=== PATIENT | female | born 1965 | race Caucasian/White ===

== ENCOUNTER 2025-07-21 11:34 | Emergency (ER) | payer OTHER, SELFPAY ==
[2025-07-21 11:40] VITALS: BP 149/104
--- NOTE | 2025-07-21 12:34 | ED.GENMED ---
History of Present Illness
General
Chief Complaint: Musculo-Skeletal Complaint
Source: patient
Exam Limitations: none
Time Seen by Provider: 07/21/25 12:31
History of Present Illness
History of Present Illness:
60yoF with history of migraines presenting with her for evaluation of left arm pain. Symptoms began around 11 AM this morning when she was sitting at her desk at work. She reports a pain in her left upper arm which radiated down to her
fingers. Pain felt like a muscle pain although she has not had any recent injuries. She recently started swimming but has not swam for the past 4 days. Symptoms are improved but she still feels a heaviness in her left arm. She denies any
associated chest pain, shortness of breath, diaphoresis, nausea.
Phy Exam
General Physical Exam
General Presentation: well appearing and no apparent distress
General age: appears stated age
General Skin: warm and dry
General Habitus: normal
General Mental: alert
ENT Exam
ENT Exam: normocephalic
Cardiovascular Exam
Cardiovascular Exam: regular rate/rhythm, no edema, no murmur and normal peripheral pulses (2+ radial pulses bilaterally)
Pulmonary Exam
Pulmonary Exam: lungs clear, no respiratory distress, no rales, no crackles, no rhonchi and no wheezing
Neurological Exam
Neurological Exam: alert
Mays Coma Scale
Eye Opening: Spontaneous
Verbal Response: Oriented
Motor Response: Obeys Commands
GCS Total Score: 15
Musculoskeletal Exam
Musculoskeletal Exam: other (Mild tenderness to L upper arm. ROM of shoulder elicits pain.)
Skin Exam
Skin Exam: normal color and warm/dry
Psychiatric Exam
Psychiatric Exam: normal mood/affect
Course
Orders/Labs/Results
Orders:
Orders
07/21/25 11:35
Electrocardiogram (*1) Urgent
Reason for Study: Other
Other Reason for Exam: arm pain
EKG- Treatment ONCE
07/21/25 12:50
Cardiac Monitoring- Treatment ONCE
07/21/25 12:56
Complete Blood Count/With Diff Urgent
Comprehensive Metabolic Panel Urgent
Troponin I Urgent
07/21/25 14:53
Troponin I Urgent
Abnormal Lab Results
07/21/25
12:56
MCHC 32.0 L g/dL
(33.0-37.0)
Absolute Monos (auto) 0.8 H 10^3/uL
(0.1-0.6)
07/21/25 12:56
07/21/25 12:56
Vital Signs
Initial and Last Documented VS:
Initial Vital Signs
Temp Pulse Resp BP Pulse Ox
98.6 F 69 20 149/104 98
07/21/25 11:40 07/21/25 11:40 07/21/25 11:40 07/21/25 11:40 07/21/25 11:40
Last Documented Vital Signs
Temp Pulse Resp BP Pulse Ox
98.6 F 64 23 108/46 96
07/21/25 11:40 07/21/25 15:00 07/21/25 15:00 07/21/25 15:00 07/21/25 15:00
MDM/Problems Addressed
Differential Diagnosis Includes:
60yoF here with L arm pain that began this AM while sitting at work. Worried about an SC. Denies CP/SOB. Now feeling improved. She is well appearing in no distress. There is mild tenderness to L upper arm on exam. Differential diagnosis includes but
is not limited to: muscular strain, cervical radiculopathy, less likely ACS
Initial ED plan: EKG obtained in triage which shows normal sinus rhythm without ischemic changes. Will check cardiac labs.
*Pulse Oximetry
SaO2: 98
Oxygen Mode of Delivery: Room air
Patient hypoxic: no
*EKG
Interpreted by ED Provider?: Yes
EKG Intrepretation Date: 07/21/25
Heart Rate: 64
Rate: normal
Rhythm: sinus
[place]: normal axis
Interval: normal interval
QRS Pattern: normal QRS
Ischemia: no ischemia
*Critical Care Note
Total Time (30-74mins, 75-104mins- exclusive of procedures): Not Applicable
Update Note
Update Note:
Labs unremarkable and troponin within normal limits. Repeat troponin performed 2 hours later which remains undetectable. On multiple reassessments, patient is minimally symptomatic and only has a mild residual ache in her left arm. She continues
to deny any chest pain or shortness of breath. Vitals are stable. No indication for hospitalization. She is advised to follow-up with PCP and ED return precautions reviewed. Patient in agreement with plan and was discharged stable condition.
ED Attending Note
-
Portions of this chart may have been created with voice recognition software.� Occasional wrong word or��sound alike� substitutions may have occurred due to the inherent limitations of voice recognition software.
Discharge Plan
Departure
Patient Disposition: Home (Routine Discharge)
Date of Disposition: 07/21/25
Time of Disposition: 15:37
Patient with high blood pressure during this ER visit?: No
Discharge Problem:
Left arm pain
Instructions: Muscle, joint, and bone pain (DC)
Prescriptions:
No Action
acetaminophen [Tylenol Extra Strength] 500 MG tablet
1 - 2 tab PO Q6HPRN PRN (Reason: pain)
[id number]-[id number]-rljtzwwv [Excedrin Migraine] 1 TABLET tablet
1 tab PO PRN PRN (Reason: pain)
Aimovig Autoinjector 70 MG/ML auto-injector
70 mg SQ .MONTHLY AT END
Naratriptan HCl
1 tab PO PRN PRN (Reason: migraine)
Referrals:
Christel Ochoa DO [Family Provider, Family Practice]
Activity Restrictions/Additional Instructions:
Please call your family doctor today to schedule a follow-up appointment. Return to the ER with any new or worsening symptoms including chest pain or shortness of breath.
Interventions
Interventions:
*Risk Screen - Suicide Last Done: 07/21/25 11:40
*General Assessment Last Done: 07/21/25 14:15
*Neglect/Abuse Screening Last Done: 07/21/25 11:40
*ED- Fall Risk Assessment Last Done: 07/21/25 12:17
*ED COVID-19 Vaccine History Last Done: 07/21/25 12:17
*ED Influenza Vaccine History Last Done: 07/21/25 12:17
*Nursing Disposition Last Done: 07/21/25 15:46
ED-Musculoskeletal Assessment Last Done: 07/21/25 14:15
Discharge Date and Time
Discharge Date/Time: 07/21/25 15:55
Print Language: CAMBODIAN
[2025-07-21 12:46] VITALS: BP 133/73
[2025-07-21 13:00] VITALS: BMI 32.9
[2025-07-21 13:10] VITALS: BP 138/74
[2025-07-21 13:10] LABS: Hematocrit 41.6 % (37.0-47.0); Hemoglobin 13.3 g/dL (12.0-16.0); Mean Corp Hgb Conc. 32.0 g/dL (33.0-37.0); Mean Corpuscular Volume 85.1 fL (81.0-99.0); Nucleated Red Blood Cells % 0 %; Platelet Count 316 10^3/uL (130-400); Red Cell Dist. Width 14.1 % (11.5-14.5)
[2025-07-21 13:28] LABS: ALT (SGPT) 19 U/L (0-35); AST (SGOT) 26 U/L (14-36); Albumin 4.0 g/dl (3.5-5.0); Alkaline Phosphatase 57 U/L (38-126); Blood Urea Nitrogen 16 mg/dl (7-17); Calcium 9.1 mg/dl (8.4-10.2); Carbon Dioxide 29 mmol/L (22-30); Chloride 104 mmol/L (98-107); Estimated Creatinine Clearance 89 ml/min; Glucose 95 mg/dl (70-99); Potassium 4.2 mmol/L (3.5-5.1); Sodium 138 mmol/L (135-145); Total Protein 6.7 g/dl (6.3-8.2); eGFR > 60.00
[2025-07-21 13:55] LABS: Troponin I < 0.012 ng/ml
[2025-07-21 14:00] VITALS: BP 113/65
[2025-07-21 14:18] VITALS: BP 127/74
[2025-07-21 15:00] VITALS: BP 108/46
[2025-07-21 15:25] LABS: Troponin I < 0.012 ng/ml
== END 2025-07-21 15:55 | disposition home or self-care (01) ==
LOC: EMR 11:34
PROVIDERS: Physician Assistant; EMERGENCY PHYSICIAN Emergency Medicine; FAMILY PHYSICIAN Family Medicine
DX: M79.622 Pain in left upper arm (principal); G43.909 Migraine, unspecified, not intractable, without status migrainosus
CPT/HCPCS: 99284; 80053; 84484; 85025; 93005